=== PATIENT | male | born 1985 | race Caucasian/White ===

== ENCOUNTER 2016-09-19 23:05 | Emergency (ER) | payer MEDICAID, OTHER ==
[~2016-09-19] VITALS: Ht 170.2 cm; Wt 61.4 kg
[2016-09-19 23:10] VITALS: Ht 170.2 cm; Wt 61.4 kg
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
[2016-09-20] MEDS ORDERED: HYDROCODONE/APAP (5/325) TAB PO ONE ×2 (01:00→03:00)
--- NOTE | 2016-09-20 01:34 | RADRPT ---
AMENDMENT: 09/20/2016 1:36:21 AM Jose Angel Salazar Md ADDENDUM: FINDINGS: Partially visualized fractures of the second, third and fourth distal metatarsals. Recommend plain film examination of the left foot. PROCEDURE: X-ray left ankle CLINICAL INDICATION: Trauma to the left ankle. TECHNIQUE: 3 views of the left ankle. COMPARISON: None. FINDINGS: Disruption of the mortise with medial mortise widening. There is a posterior malleolar fracture. Th ere is an osteochondral defect at the medial talar dome. Medial left ankle soft tissue swelling. IMPRESSION: 1. Posterior malleolar fracture. 2. Disruption of the mortise with medial mortise widening. 3. Osteochondral defect of the medial talar dome. RPTAT: [facility] Physician Iglesia Date Time Electronically viewed and signed by Physician Iglesia on 09/20/2016 01:36 RS/
--- NOTE | 2016-09-20 01:35 | RADRPT ---
PROCEDURE: X-ray left knee CLINICAL INDICATION: Trauma to the left knee status post fall TECHNIQUE: 3 views left knee. COMPARISON: None FINDINGS: Fracture of the proximal tibial diaphysis. Remaining osseous structures are without acute fracture. Soft tissue disruption over the anterior patella. IMPRESSION: 1. Fracture of the proximal tibial diaphysis. 2. Otherwise, no evident acute fracture. RPTAT: [facility] Physician Iglesia Date Time Electronically viewed and signed by Eusebio Salazar Physician on 09/20/2016 01:35 RS/
--- NOTE | 2016-09-20 02:39 | RADRPT ---
PROCEDURE: Left leg x-ray. CLINICAL INDICATION: Left leg pain with fractures of the proximal left fibula and distal tibia. TECHNIQUE: 3 views left tibia and fibula COMPARISON: None FINDINGS: Comminuted oblique fracture the proximal diaphysis of the fibula. Posterior malleolus fracture at t he distal tibia. Widening of the medial mortise with soft tissue swelling over the medial ankle. Th ere is an osteochondral defect at the medial talar dome. There are fractures of the second third and fourth distal metatarsals, and recommend dedicated left foot series. These findings are seen to better advantage on today's left ankle series. IMPRESSION: 1. Comminuted oblique fracture of the proximal diaphysis of the left fibula. 2. Posterior malleolar fracture of the distal left tibia. 3. Fractures of the distal second, third and fourth metatarsals. 4. Disruption of the mortise with medial widening. RPTAT: [facility] Physician Iglesia Date Time Electronically viewed and signed by Physician Iglesia on 09/20/2016 02:38 RS/
[2016-09-20] MEDS ORDERED: HYDR-906 PO (03:23)
[2016-09-20] MEDS ORDERED: IBUP400T22 PO (03:23)
[2016-09-20 03:39] VITALS: BP 120/67; PULSE 69; RESP 16
== END 2016-09-20 03:49 | disposition home or self-care (01) ==
LOC: FTE 23:05
DX: S82.832A Other fracture of upper and lower end of left fibula, initial encounter for closed fracture (principal); S82.892A Other fracture of left lower leg, initial encounter for closed fracture; S92.332A Displaced fracture of third metatarsal bone, left foot, initial encounter for closed fracture; S92.342A Displaced fracture of fourth metatarsal bone, left foot, initial encounter for closed fracture; V18.0XXA Pedal cycle driver injured in noncollision transport accident in nontraffic accident, initial encounter
CPT/HCPCS: 29505; 73562; 73590; 73610; Z7502; Z7610